=== PATIENT | female | born 1955 | race Caucasian/White ===

== ENCOUNTER 2020-11-08 13:22 | Emergency (ER) | payer OTHER, SELFPAY ==
[2020-11-08] MEDS ORDERED: Metoprolol Tartrate 5 MG/5 ML VIAL ONE (13:55)
[2020-11-08] MEDS ORDERED: diphenhydrAMINE 50 MG/ML VIAL ONE (13:55)
[2020-11-08] MEDS ORDERED: Prochlorperazine 10 MG/2 ML VIAL ONE (13:55)
[2020-11-08 14:02] LABS: #Basophils 0.1 thou/uL (0.0-0.2); #Eosinphils 0.4 thou/uL (0.0-0.7); #Lymphocytes 2.3 thou/uL (1.20-3.40); #Neutrophils 5.8 thou/uL (1.40-6.50); %Basophils 1.6 % (0.0-1.0); %Eosinophils 3.7 % (0.0-10.0); %Lymphocytes 24.3 % (21.0-51.0); %Neutrophils 60.4 % (42.0-75.0); Hemoglobin 15.2 g/dL (12.0-16.0); Mean Corpuscular HGB CONC 31.7 g/dL (32.0-36.0); Mean Corpuscular Hemoglobin 27.8 pg (27.0-31.0); Mean Corpuscular Volume 87.6 fL (78.0-98.0); Mean Platelet Volume 11.5 fL (7.4-10.4); Platelet Count 146 thou/uL (130-400); RBC Distribution Width 12.6 % (11.5-14.5); Red Blood Cell (RBC) Count 5.49 mill/uL (4.20-5.40); White Blood Cell (WBC) Count 9.5 thou/uL (4.8-10.8)
[2020-11-08 14:13] LABS: ALT (SGPT) 23 U/L (8-55); AST (SGOT) 21 U/L (5-34); Albumin 4.3 g/dL (3.4-4.8); Alkaline Phosphatase 115 U/L (40-110); Anion Gap 14 mmol/L (10-20); BUN (Urea Nitrogen) 14 mg/dL (9.8-20.1); Bilirubin, Total 0.4 mg/dL (0.2-1.2); Calc. Creatinine Clearance 0 mL/min (70-130); Calcium 9.3 mg/dL (7.8-10.44); Carbon Dioxide 29 mmol/L (23-31); Chloride 104 mmol/L (98-107); Globulin 3.7 g/dL (2.4-3.5); Glucose 115 mg/dL (80-115); Lipase 16 U/L (8-78); Potassium 4.3 mmol/L (3.5-5.1); Sodium 143 mmol/L (136-145)
--- NOTE | 2020-11-08 14:35 | RAD ---
Portable frontal chest radiograph: 11/08/2020 COMPARISON: 10/27/2016 HISTORY: Vomiting, headache FINDINGS: Stable mild increased linear interstitial density. No focal consolidation or alveolar edema . Heart and mediastinal contours are stable. IMPRESSION: Mild interstitial prominence, not significantly changed. No focal consolidation or alveol ar edema.
== END 2020-11-08 15:00 | disposition home or self-care (01) ==
LOC: NAV ERS 13:22
DX: G43.909 Migraine, unspecified, not intractable, without status migrainosus (principal); I10 Essential (primary) hypertension; J45.909 Unspecified asthma, uncomplicated; Z79.899 Other long term (current) drug therapy
CPT/HCPCS: 71045; 80053; 83690; 85025; 93005; 96374; 96375; J0780; J1200

== ENCOUNTER 2023-04-01 08:18 | Emergency (ER) | payer MEDICARE ==
[2023-04-01] MEDS ORDERED: Iopamidol 370 76% 100 ML VIAL ONE (09:00)
[2023-04-01] MEDS ORDERED: Lactated Ringer's 1,000 ML ONE ×2 (09:21→11:08)
[2023-04-01] MEDS ORDERED: Ketorolac Tromethamine 30 MG/ML VIAL ONE (09:21)
[2023-04-01 09:27] LABS: #Basophils 0.1 thou/uL (0.0-0.2); #Lymphocytes 0.6 thou/uL (1.20-3.40); #Monocytes 0.5 thou/uL (0.11-0.59); #Neutrophils 7.6 thou/uL (1.40-6.50); %Basophils 0.6 % (0.0-1.0); %Lymphocytes 7.3 % (21.0-51.0); %Monocytes 5.1 % (0.0-10.0); Hemoglobin 12.5 g/dL (12.0-16.0); Mean Corpuscular HGB CONC 32.6 g/dL (32.0-36.0); Mean Corpuscular Hemoglobin 26.8 pg (27.0-31.0); Mean Corpuscular Volume 82.2 fl (78.0-98.0); Mean Platelet Volume 15.2 fL (7.4-10.4); Platelet Count 75 10x3/uL (130-400); RBC Distribution Width 12.9 % (11.5-14.5); Red Blood Cell (RBC) Count 4.69 mill/uL (4.20-5.40); White Blood Cell (WBC) Count 8.8 10x3/uL (4.8-10.8)
[2023-04-01 09:37] LABS: ALT (SGPT) 110 U/L (8-55); AST (SGOT) 100 U/L (5-34); Albumin 3.6 g/dL (3.4-4.8); Alkaline Phosphatase 82 U/L (40-110); Anion Gap 18 mmol/L (10-20); BUN (Urea Nitrogen) 15 mg/dL (9.8-20.1); Bilirubin, Total 0.8 mg/dL (0.2-1.2); Calc. Creatinine Clearance 0 mL/min (70-130); Calcium 8.4 mg/dL (7.8-10.44); Carbon Dioxide 23 mmol/L (23-31); Chloride 97 mmol/L (98-107); Estimated GFR 69; Globulin 3.1 g/dL (2.4-3.5); Glucose 119 mg/dL (80-115); Lipase 91 U/L (8-78); Magnesium 1.9 mg/dL (1.6-2.6); Potassium 3.6 mmol/L (3.5-5.1); Protein, Total 6.7 g/dL (5.8-8.1); Sodium 134 mmol/L (136-145)
[2023-04-01 11:21] LABS: Bilirubin Small (Negative); Blood, Urine Moderate (Negative); Clarity Clear (Clear); Glucose, Urine (Dipstick) Negative (Negative); Ketone, Urine Trace mg/dL (Negative); Leukocyte Negative (Negative); Nitrite Negative (Negative); Protein, Urine (Dipstick) 30 mg/dL (Neg-Trace)
[2023-04-01 11:54] LABS: Bacteria/HPF Rare-Few HPF (None Seen); Squamous Epithelial 0-3 HPF (0-3); WBC/HPF 0-3 HPF (0-3)
== END 2023-04-01 13:35 | disposition home or self-care (01) ==
LOC: NAV ERS 08:18
DX: R19.7 Diarrhea, unspecified (principal); R16.1 Splenomegaly, not elsewhere classified; D69.6 Thrombocytopenia, unspecified; I10 Essential (primary) hypertension; J45.909 Unspecified asthma, uncomplicated; R10.30 Lower abdominal pain, unspecified; Z79.899 Other long term (current) drug therapy
CPT/HCPCS: 74177; 80053; 81003; 81015; 83605; 83690; 83735; 85025; 93005; 94760; 96361; 96374; J1885; J7120; Q9967

== ENCOUNTER 2023-04-02 07:40 | Emergency (ER) | payer MEDICARE ==
[2023-04-02] MEDS ORDERED: Ibuprofen 200 MG TAB ONE (08:00)
[2023-04-02] MEDS ORDERED: Acetaminophen 500 MG TAB ONE (08:19)
[2023-04-02] MEDS ORDERED: Sodium Chloride 0.9% 2,000 ML ONE (08:20)
[2023-04-02 08:35] LABS: ALT (SGPT) 81 U/L (8-55); AST (SGOT) 71 U/L (5-34); Alkaline Phosphatase 76 U/L (40-110); Anion Gap 16 mmol/L (10-20); BUN (Urea Nitrogen) 11 mg/dL (9.8-20.1); Bilirubin, Total 0.7 mg/dL (0.2-1.2); Calc. Creatinine Clearance 0 mL/min (70-130); Calcium 8.3 mg/dL (7.8-10.44); Carbon Dioxide 21 mmol/L (23-31); Chloride 101 mmol/L (98-107); Estimated GFR 84; Globulin 3.2 g/dL (2.4-3.5); Glucose 121 mg/dL (80-115); Potassium 3.7 mmol/L (3.5-5.1); Protein, Total 6.2 g/dL (5.8-8.1); Sodium 134 mmol/L (136-145)
[2023-04-02 08:44] LABS: #Basophils 0.1 thou/uL (0.0-0.2); #Lymphocytes 0.4 thou/uL (1.20-3.40); #Monocytes 0.4 thou/uL (0.11-0.59); #Neutrophils 9.1 thou/uL (1.40-6.50); %Basophils 0.9 % (0.0-1.0); %Lymphocytes 3.6 % (21.0-51.0); %Monocytes 4.2 % (0.0-10.0); %Neutrophils 91.3 % (42.0-75.0); Hemoglobin 10.9 g/dL (12.0-16.0); Mean Corpuscular HGB CONC 33.1 g/dL (32.0-36.0); Mean Corpuscular Hemoglobin 26.7 pg (27.0-31.0); Mean Corpuscular Volume 80.7 fl (78.0-98.0); Mean Platelet Volume 14.4 fL (7.4-10.4); Platelet Count 63 10x3/uL (130-400); RBC Distribution Width 12.7 % (11.5-14.5); Red Blood Cell (RBC) Count 4.09 mill/uL (4.20-5.40)
[2023-04-02] MEDS ORDERED: Iopamidol 370 76% 100 ML VIAL ONE (09:00)
[2023-04-02] MEDS ORDERED: Ondansetron PF 4 MG/2 ML Vial ONE (10:40)
[2023-04-02 10:50] LABS: MONO NEGATIVE CONTROL ZONE White (Negative) (White); MONO POSITIVE CONTROL Pink Line (Positive) (PINK/RED); Mononucleosis NEGATIVE (NEGATIVE)
[2023-04-02] MEDS ORDERED: Ipratropium/Albuterol 3 ML NEB ONE (11:40)
[2023-04-02] MEDS ORDERED: Lactated Ringer's 1,000 ML ONE (11:40)
== END 2023-04-02 12:58 | disposition short-term general hospital (02) ==
LOC: NAV ERS 07:40
DX: J45.901 Unspecified asthma with (acute) exacerbation (principal); A09 Infectious gastroenteritis and colitis, unspecified; E86.0 Dehydration; I95.9 Hypotension, unspecified; I10 Essential (primary) hypertension; Z79.899 Other long term (current) drug therapy
CPT/HCPCS: 71046; 71275; 74177; 80053; 83605; 85025; 85379; 86308; 87040; 93005; 96361; 96374; J2405; J7050; J7120; J7620; Q9967

== ENCOUNTER 2023-10-28 14:40 | Outpatient (CLI) | payer MEDICARE | END 2023-10-28 14:41 | disposition home or self-care (01) | LOC: NAV RAD 14:40 | PROVIDERS: ATTEND Nurse Practitioner Family | DX: M25.562 Pain in left knee (principal); M25.462 Effusion, left knee ==